=== PATIENT | female | born 2000 | race African-American/Black ===

== ENCOUNTER 2023-10-14 18:08 | Emergency (ER) | payer MEDICAID ==
[~2023-10-14] VITALS: Ht 157.5 cm; Wt 66.8 kg
[2023-10-14 18:17] VITALS: PULSE 106
[2023-10-14 18:26] VITALS: BP 134/85; RESP 18; TEMP 98.2; O2SAT 99
== END 2023-10-14 21:48 | disposition left against medical advice (07) ==
LOC: ER 18:08
DX: R51.9 Headache, unspecified (principal); Z53.21 Procedure and treatment not carried out due to patient leaving prior to being seen by health care provider